=== PATIENT | male | born 1955 | race African-American/Black ===

== ENCOUNTER 2025-02-15 03:47 | Emergency (ER) | payer MEDICARE, MEDICAID ==
[~2025-02-15] VITALS: Ht 182.9 cm; Wt 100.0 kg
[2025-02-15 03:53] VITALS: O2SAT 97
[2025-02-15 04:03] VITALS: TEMP 36.7; O2SAT 99
[2025-02-15 04:52] VITALS: BP 143/100; PULSE 83; RESP 16
[2025-02-15] MEDS: KETOROLAC 15MG/ML VIAL IM ONE (04:52)
[2025-02-15] MEDS ORDERED: LIDO-53 TP (05:13)
== END 2025-02-15 05:37 | disposition home or self-care (01) ==
LOC: ER 03:47
DX: B02.9 Zoster without complications (principal); I10 Essential (primary) hypertension; Z96.649 Presence of unspecified artificial hip joint
CPT/HCPCS: 99283; 96372; J1885